=== PATIENT | male | born 1990 | race Caucasian/White ===

== ENCOUNTER 2021-03-29 12:18 | Emergency (ER) | payer MEDICAID ==
[~2021-03-29] VITALS: Ht 167.6 cm; Wt 63.5 kg
[2021-03-29 12:20] VITALS: BP_SYST 148
--- NOTE | 2021-03-29 12:20 | NUR ---
Came in ER per wheelchair accompanied by his mother this 30 male, c/o alcohol intoxication,as per the Patient's mom he is on Detox for alcohol withdrawals. Pt states 'he drink a lot of vodka today". HX of Seizure secodary to ETOH withdraws, DTs. Fully awake, alert, incoherent, crying, emotional upset, respiration even/unlabored, no acute distress noted at this time.
--- NOTE | 2021-03-29 12:25 | NUR ---
# 20 gauge angiocath placed to right ac. Use of asceptic technique. Opsite placed over site. Blood return noted. Blood for lab drawn from site. Flushed with 10 cc of normal saline. No evidence of infiltration noted. Patient tolerated well.
--- NOTE | 2021-03-29 12:33 | NUR ---
Dr Langley evaluating patient at bedside
--- NOTE | 2021-03-29 12:34 | NUR ---
Seen and examined by Dr. Langley
--- NOTE | 2021-03-29 12:37 | NUR ---
Patient transported to radiology via gurney , accompanied by applied research director in stable condition.
[2021-03-29 12:46] LABS: BASOPHILS # (AUTO) 0.1 K/uL (0.0-0.2); BASOPHILS % (AUTO) 0.9 % (0.0-2.0); EOSINOPHILS # (AUTO) 0.2 K/uL (0.0-0.4); EOSINOPHILS % (AUTO) 2.4 % (0.0-4.0); HEMOGLOBIN 16.1 g/dL (14.0-18.0); LYMPHOCYTES # (AUTO) 2.1 K/uL (1.0-5.5); LYMPHOCYTES % (AUTO) 32.1 % (20.5-51.5); MEAN CORPUSCULAR HEMOGLOBIN 34 pg (27-31); MEAN CORPUSCULAR HGB CONC 35 % (32-36); MEAN CORPUSCULAR VOLUME 97 fL (79.0-98.0); MONOCYTES # (AUTO) 0.4 K/uL (0.0-1.0); MONOCYTES % (AUTO) 5.5 % (1.7-9.3); NEUTROPHILS # (AUTO) 3.8 K/uL (1.8-7.7); NEUTROPHILS % (AUTO) 59.1 % (40.0-70.0); PLATELET COUNT (AUTO) 275 K/uL (130-430); RED BLOOD CELL COUNT(AUTO) 4.77 MIL/uL (4.2-6.2); RED CELL DISTRIBUTION WIDTH 12.9 % (9.0-15.0); WHITE BLOOD COUNT (AUTO) 6.4 K/uL (4.8-10.8)
--- NOTE | 2021-03-29 13:01 | NUR ---
Returned from radiology, back to [facility].
[2021-03-29 13:23] LABS: ANION GAP 10 (5-15); CALCIUM 8.6 mg/dL (8.4-11.0); CHLORIDE 100 mmol/L (98-107); CREATININE 0.87 mg/dL (0.55-1.30); GLUCOSE 126 mg/dL (70-99); POTASSIUM 3.6 mmol/L (3.5-5.1); SODIUM SERUM 138 mmol/L (136-145); UREA NITROGEN, BLOOD 14 mg/dL (8-21)
[2021-03-29 13:24] LABS: GFR AFRICAN AMERICAN 133 mL/min (>90)
[2021-03-29 13:36] LABS: ALANINE AMINOTRANSFERASE 57 U/L (12-78); ALBUMIN 4.3 g/dL (3.4-4.8); ASPARTATE AMINOTRANSFERASE 70 U/L (10-37); THYROID STIMULATING HORMONE 1.25 uIu/mL (0.36-3.74); TOTAL BILIRUBIN 0.5 mg/dL (0.0-1.0)
[2021-03-29 13:38] LABS: ACETAMINOPHEN < 1 ug/mL (1-30)
[2021-03-29 13:39] LABS: ALCOHOL, BLOOD 478 mg/dL (<10)
[2021-03-29] MEDS ORDERED: NACL 0.9% 1,000 ML IV ONE ×3 (13:45→15:00)
--- NOTE | 2021-03-29 14:00 | NUR ---
Patient unable to urinate, Dr. Langley made aware and ordered for in and out catheter
--- NOTE | 2021-03-29 14:20 | NUR ---
# 14 FR In and Out catheter with use of sterile technique. Immediate return of 1000 ml urine noted. Urine sample collected and sent to lab. Pt tolerated procedure well.
[2021-03-29 14:32] LABS: BILIRUBIN,URINE NEGATIVE (NEGATIVE); BLOOD, URINE NEGATIVE (NEGATIVE); CLARITY/URINE CLEAR (CLEAR); COLOR,URINE YELLOW (YELLOW); GLUCOSE,URINE NEGATIVE (NEGATIVE); KETONES,URINE NEGATIVE (NEGATIVE); LEUKOCYTE ESTERASE ,URINE NEGATIVE (NEGATIVE); NITRITE, URINE NEGATIVE (NEGATIVE); PH,URINE 6.5 (5.0-8.0); PROTEIN URINE NEGATIVE (NEGATIVE); UROBILINOGEN,URINE 0.2 (0.2-1.0)
[2021-03-29 14:42] LABS: BARBITURATE, URINE NEGATIVE (NEG <=200); BENZODIAZEPINE, URINE NEGATIVE (NEG <=150); CANNABINOID, URINE POSITIVE (NEG <=50); COCAINE, URINE NEGATIVE (NEG <=150); METHAMPHETAMINES SCREEN,URINE NEGATIVE (NEG <=500); OPIATE, URINE NEGATIVE (NEG <=100); PHENCYCLIDINE SCREEN,URINE NEGATIVE (NEG <=25); UR TRICYCLIC ANTIDEPRESSANTS POSITIVE (NEG <=300); URINE AMPHETAMINE NEGATIVE (NEG <=500); URINE METHADONE NEGATIVE (NEG <=200); URINE OXYCODONE SCREEN NEGATIVE (NEG <=100); URINE PROPOXYPHENE SCREEN NEGATIVE (NEG <=300)
--- NOTE | 2021-03-29 14:45 | NUR ---
Re-assesed by Dr. Mccauley
[2021-03-29] MEDS ORDERED: LORazepam 2 MG/ML VIAL IVP ONE (15:00)
--- NOTE | 2021-03-29 16:33 | NUR ---
Still sleeping, respiration even/unlabored, vital signs stable
[2021-03-29] MEDS ORDERED: PRO40 PO (18:08)
[2021-03-29] MEDS ORDERED: SER25 PO (18:08)
[2021-03-29] MEDS ORDERED: FER300L PO (18:08)
[2021-03-29] MEDS ORDERED: ACET325T53 PO (18:08)
[2021-03-29] MEDS ORDERED: ACET-73 PO (18:08)
--- NOTE | 2021-03-29 18:50 | NUR ---
Fully awake and alert, turkey sandwich served.
--- NOTE | 2021-03-29 19:10 | NUR ---
Endorsed to cigarette machine operator LEON Sidhu in stable condition for continuity of care.
--- NOTE | 2021-03-29 19:18 | NUR ---
RECEIVED REPORT FROM ANTONIO QUINTERO
--- NOTE | 2021-03-29 19:50 | NUR ---
PT FOUND IN ROOM AT SINK, URINATING INTO SINK. PT STATES HE WANTS TO GO HOME, THAT HE'S BEEN HERE TOO LONG. PT PLACED BACK ON MONITOR. ATE ALL HIS BOXED LUNCH
[2021-03-29] MEDS ORDERED: LORA-259 PO (19:58)
--- NOTE | 2021-03-29 20:14 | NUR ---
PT'S MOTHER CALLED SAYING SHE IS GOING TO TAKE HIM TO [facility], SHE TOLD ER THAT [facility] IS REQUESTING A NEW ALCOHOL LEVEL BEFORE HE CAN COME. WAITING FOR NEW LAB
[2021-03-29] MEDS ORDERED: LORazepam 1 MG TABLET PO ONE (20:15)
[2021-03-29] MEDS ORDERED: LORazepam 1 MG TABLET ONE (20:20)
--- NOTE | 2021-03-29 21:25 | NUR ---
Patient given written and verbal discharge instructions and verbalizes understanding. ER MD discussed with patient the results and treatment provided. Patient in stable condition. ID arm band removed. IV catheter removed intact and dressing applied, no active bleeding. Rx of ATIVAN given. Patient educated on pain management and to follow up with PMD. Pain Scale 0. Opportunity for questions provided and answered. Medication side effect fact sheet provided.
[2021-03-29 21:33] VITALS: BP_SYST 139
== END 2021-03-29 21:33 | disposition home or self-care (01) ==
LOC: SED 12:18
DX: S00.83XA Contusion of other part of head, initial encounter (principal); F10.129 Alcohol abuse with intoxication, unspecified; Z79.899 Other long term (current) drug therapy; W18.39XA Other fall on same level, initial encounter; Y93.89 Activity, other specified; Y92.89 Other specified places as the place of occurrence of the external cause; Y99.8 Other external cause status
CPT/HCPCS: 36415; 70450; 70486; 76376; 80053; 80307; 81003; 82009; 84443; 85025; 93005; 96361; 96374; 99285; G0480; J2060; J7030; G0481; G0482

== ENCOUNTER 2021-04-25 12:37 | Emergency (ER) | payer MEDICAID, SELFPAY ==
[~2021-04-25] VITALS: Ht 170.2 cm; Wt 65.8 kg
[2021-04-25 12:37] VITALS: BP_SYST 133
[~2021-04-25 12:37] MED LIST: ACET-73 PO; ACET325T53 PO; FER300L PO; LORA-259 PO; PRO40 PO; SER25 PO
--- NOTE | 2021-04-25 12:37 | NUR ---
TRIAGED AND PLACED IN WAITING ROOM WITH MOTHER UNTIL ER BED AVAILABLE, HAVE TO MOVE PTS AROUND. MOTHER AGREES TO WAIT WITH PT. PT IS INTOXICATED BUT ABLE TO MAKE NEEDS KNOWN. PT IS SUICIDAL
--- NOTE | 2021-04-25 12:57 | NUR ---
BROUGHT BACK TO BED #5 AND REPORT GIVEN TO JAMES
--- NOTE | 2021-04-25 12:58 | NUR ---
Song carrington in [facility] - 04/25/21 at [email or web address] Dominguez evaluating patient at bedside
[2021-04-25] MEDS ORDERED: NACL 0.9% 3,000 ML IV ONE (13:15)
[2021-04-25] MEDS ORDERED: LORazepam 2 MG/ML VIAL IVP ONE (13:15)
--- NOTE | 2021-04-25 13:55 | NUR ---
pt presents to er c/o SI, pt drinking heavily x6 weeks per mother approx 30 oz of vodka daily. pt alert oriented calm cooperative. iv inserted to right ac #18guage fluids infusing medicated per order. tolerated well. nad. safety maintained. pt contracts for safety.
[2021-04-25 13:59] LABS: BASOPHILS # (AUTO) 0.1 K/uL (0.0-0.2); BASOPHILS % (AUTO) 0.9 % (0.0-2.0); EOSINOPHILS % (AUTO) 0.5 % (0.0-4.0); HEMATOCRIT 42.6 % (36-54); HEMOGLOBIN 15.3 g/dL (14.0-18.0); LYMPHOCYTES # (AUTO) 1.1 K/uL (1.0-5.5); LYMPHOCYTES % (AUTO) 14.9 % (20.5-51.5); MEAN CORPUSCULAR HEMOGLOBIN 35 pg (27-31); MEAN CORPUSCULAR HGB CONC 36 % (32-36); MEAN CORPUSCULAR VOLUME 96 fL (79.0-98.0); MONOCYTES # (AUTO) 0.3 K/uL (0.0-1.0); MONOCYTES % (AUTO) 4.2 % (1.7-9.3); NEUTROPHILS # (AUTO) 5.9 K/uL (1.8-7.7); NEUTROPHILS % (AUTO) 79.5 % (40.0-70.0); PLATELET COUNT (AUTO) 241 K/uL (130-430); RED BLOOD CELL COUNT(AUTO) 4.43 MIL/uL (4.2-6.2); RED CELL DISTRIBUTION WIDTH 14.5 % (9.0-15.0); WHITE BLOOD COUNT (AUTO) 7.5 K/uL (4.8-10.8)
[2021-04-25 14:05] LABS: ANION GAP 13 (5-15); CALCIUM 8.3 mg/dL (8.4-11.0); CHLORIDE 98 mmol/L (98-107); CREATININE 0.71 mg/dL (0.55-1.30); GLUCOSE 100 mg/dL (70-99); POTASSIUM 3.8 mmol/L (3.5-5.1); SODIUM SERUM 139 mmol/L (136-145); UREA NITROGEN, BLOOD 11 mg/dL (8-21)
[2021-04-25 14:11] LABS: GFR AFRICAN AMERICAN 168 mL/min (>90)
[2021-04-25 14:18] LABS: ALANINE AMINOTRANSFERASE 96 U/L (12-78); ALBUMIN 4.3 g/dL (3.4-4.8); AMYLASE 41 U/L (0-100); ASPARTATE AMINOTRANSFERASE 116 U/L (10-37); LIPASE 254 U/L (73-393); TOTAL BILIRUBIN 0.8 mg/dL (0.0-1.0)
[2021-04-25 14:25] LABS: ALCOHOL, BLOOD 437 mg/dL (<10)
[2021-04-25 15:04] LABS: ACETONE, SERUM NEGATIVE (NEGATIVE)
[2021-04-25] MEDS ORDERED: chlordiazePOXIDE HCL 25 MG CAPSULE PO ONE (17:45)
--- NOTE | 2021-04-25 17:48 | NUR ---
PT C/O NAUSEA AND TREMORS, MEDICATED WITH LIBRIUM PER ORDER.
[2021-04-25] MEDS ORDERED: NACL 0.9% 1,000 ML IV ONE (18:45)
--- NOTE | 2021-04-25 19:15 | NUR ---
Pt A&Ox4,VSS, respirations even and unlabored, cap refill <3.
--- NOTE | 2021-04-25 19:20 | NUR ---
Dr Dominguez evaluating patient at bedside
[2021-04-25] MEDS ORDERED: THORAZINE (chlorproMAZINE) 25 MG TAB PO ONE (19:45)
[2021-04-25 21:58] VITALS: BP_SYST 137
--- NOTE | 2021-04-25 21:58 | NUR ---
Patient given written and verbal discharge instructions and verbalizes understanding. ER MD discussed with patient the results and treatment provided. Patient in stable condition. ID arm band removed. No Rx given. Patient educated on pain management and to follow up with PMD. Pain Scale 0/10 . Opportunity for questions provided and answered. Medication side effect fact sheet provided.
== END 2021-04-25 21:58 | disposition home or self-care (01) ==
LOC: SED 12:37
DX: F10.10 Alcohol abuse, uncomplicated (principal); Z79.899 Other long term (current) drug therapy; Y90.8 Blood alcohol level of 240 mg/100 ml or more
CPT/HCPCS: 36415; 80053; 81002; 82009; 82140; 82150; 83605; 83690; 85025; 96361; 96374; 99285; G0482; J2060; J7030; Q0161

== ENCOUNTER 2021-05-24 15:24 | Emergency (ER) | payer BC, SELFPAY ==
[~2021-05-24] VITALS: Ht 170.2 cm; Wt 68.0 kg
[2021-05-24 15:35] VITALS: BP_SYST 156
--- NOTE | 2021-05-24 15:35 | NUR ---
Pt to remain in the ER lobby until ER bed becomes available.
--- NOTE | 2021-05-24 15:54 | NUR ---
Patient to ER bed 05 to gown for evaluation. Side rails up.
--- NOTE | 2021-05-24 16:10 | NUR ---
Pt in Bed 5 with no s/s of distress. VSS. A&Ox4. Ambulatory with steady gait. Bed in lowest position.
--- NOTE | 2021-05-24 16:42 | NUR ---
ER physician at bedside.
[2021-05-24] MEDS ORDERED: FOLIC ACID 1 MG, THIAMINE HCL 100 MG, MAGNESIUM SULFATE 1 GM, MVI 10 ML in NACL 0.9% 1,... IV ONE (17:00)
[2021-05-24] MEDS ORDERED: THIAMINE HCL 100 MG, MAGNESIUM SULFATE 1 GM in NS 100 ML IV ONE (17:00)
[2021-05-24] MEDS ORDERED: FOLIC ACID 1 MG, MVI 10 ML in NACL 0.9% 1,000 ML IV ONE (17:00)
--- NOTE | 2021-05-24 17:10 | NUR ---
20g IV placed on right AC using aseptic technique, no infiltration noted. Blood draw done. Called pharmacy in regards to bringing a banana bag for pt, they stated they will bring it as soon as possible.
[2021-05-24 17:39] LABS: MEAN CORPUSCULAR HEMOGLOBIN 34 pg (27-31)
[2021-05-24 17:45] LABS: BASOPHILS # (AUTO) 0.1 K/uL (0.0-0.2); BASOPHILS % (AUTO) 0.7 % (0.0-2.0); EOSINOPHILS % (AUTO) 0.3 % (0.0-4.0); HEMATOCRIT 47.9 % (36-54); HEMOGLOBIN 16.7 g/dL (14.0-18.0); LYMPHOCYTES # (AUTO) 2.5 K/uL (1.0-5.5); LYMPHOCYTES % (AUTO) 30.1 % (20.5-51.5); MEAN CORPUSCULAR HGB CONC 35 % (32-36); MEAN CORPUSCULAR VOLUME 98 fL (79.0-98.0); MONOCYTES # (AUTO) 0.5 K/uL (0.0-1.0); NEUTROPHILS # (AUTO) 5.1 K/uL (1.8-7.7); NEUTROPHILS % (AUTO) 62.9 % (40.0-70.0); PLATELET COUNT (AUTO) 405 K/uL (130-430); RED BLOOD CELL COUNT(AUTO) 4.88 MIL/uL (4.2-6.2); WHITE BLOOD COUNT (AUTO) 8.2 K/uL (4.8-10.8)
[2021-05-24 17:54] LABS: CALCIUM 9.3 mg/dL (8.4-11.0); CREATININE 0.88 mg/dL (0.55-1.30); POTASSIUM 4.3 mmol/L (3.5-5.1)
[2021-05-24 18:00] LABS: TOTAL BILIRUBIN 0.4 mg/dL (0.0-1.0)
[2021-05-24 18:02] LABS: PROTHROMBIN TIME 8.9 SECS (9.5-12.5)
[2021-05-24 18:03] LABS: BARBITURATE, URINE NEGATIVE (NEG <=200); BENZODIAZEPINE, URINE NEGATIVE (NEG <=150); COCAINE, URINE NEGATIVE (NEG <=150); METHAMPHETAMINES SCREEN,URINE NEGATIVE (NEG <=500); OPIATE, URINE NEGATIVE (NEG <=100); PHENCYCLIDINE SCREEN,URINE NEGATIVE (NEG <=25); UR TRICYCLIC ANTIDEPRESSANTS NEGATIVE (NEG <=300); URINE AMPHETAMINE NEGATIVE (NEG <=500); URINE METHADONE NEGATIVE (NEG <=200); URINE OXYCODONE SCREEN NEGATIVE (NEG <=100); URINE PROPOXYPHENE SCREEN NEGATIVE (NEG <=300)
[2021-05-24 18:03] LABS: BILIRUBIN,URINE NEGATIVE (NEGATIVE); BLOOD, URINE 1+ (NEGATIVE); COLOR,URINE YELLOW (YELLOW); GLUCOSE,URINE NEGATIVE (NEGATIVE); KETONES,URINE 2+ (NEGATIVE); LEUKOCYTE ESTERASE ,URINE NEGATIVE (NEGATIVE); NITRITE, URINE NEGATIVE (NEGATIVE); PH,URINE 5.5 (5.0-8.0); PROTEIN URINE 3+ (NEGATIVE); UROBILINOGEN,URINE 0.2 (0.2-1.0)
[2021-05-24 18:04] LABS: CANNABINOID, URINE POSITIVE (NEG <=50)
[2021-05-24 18:13] LABS: BACTERIA,URINE FEW /HPF (None Seen); WBC,URINE 0-3 /HPF (0-3)
[2021-05-24 18:15] LABS: INR 0.8 (0.80-1.20)
--- NOTE | 2021-05-24 19:21 | NUR ---
ASSUMED CARE OF PATIENT AT THIS TIME.
--- NOTE | 2021-05-24 19:37 | NUR ---
PATIENT CLEARED FOR DISHCARGE AT THIS TIME. ADVISED TO FOLLOW UP WITH PCP AND RETURN IF CONDITION WORSENS. NO OTHER COMPLAINTS OR CONCERNS FOLLOWING DISCHARGE TEACHING. IV REMOVED AND PATIENT RELEASED TO MOTHER.
[2021-05-24 19:38] VITALS: BP_SYST 137
[2021-05-24 19:59] LABS: CLARITY/URINE HAZY (CLEAR)
[2021-05-24 20:00] LABS: MUCUS,URINE None Seen /LPF (None Seen)
== END 2021-05-24 19:38 | disposition home or self-care (01) ==
LOC: SED 15:24
DX: F10.129 Alcohol abuse with intoxication, unspecified (principal); Y90.8 Blood alcohol level of 240 mg/100 ml or more; Z79.899 Other long term (current) drug therapy
CPT/HCPCS: 36415; 80053; 80307; 81000; 82140; 83690; 85025; 85610; 96365; 96366; 96368; 99284; G0482; J3411; J3475; J3490; J7030

== ENCOUNTER 2021-11-21 07:13 | Emergency (ER) | payer BC, OTHER ==
[~2021-11-21] VITALS: Ht 170.2 cm; Wt 68.0 kg
[2021-11-21 07:15] VITALS: BP_SYST 130
--- NOTE | 2021-11-21 07:15 | NUR ---
BROUGHT IN BY [facility] AND PLACED IN BED #8, TRIAGED. REPORT GIVEN TO DORIS
--- NOTE | 2021-11-21 07:23 | NUR ---
DR TAO IN ROOM FOR EXAM
--- NOTE | 2021-11-21 07:29 | NUR ---
PT LAYING IN BED, IN NAD. RESP EVEN AND UNLABORED, ON A @98% REPORTS PAIN 7/10 TO LEFT SIDED RIB AREA AFTER FALLING OFF BED 2 WEEKS AGO SECONDARY TO ETOH ABUSE. REPORTS LAST DRINK TWO DAYS AGO AND THATHE'S HERE BECAUSE HE HAS HICCUPS AND IT HURTS MORE. SAFETY PRECAUTIONS IN PLACE.
[2021-11-21] MEDS ORDERED: THORAZINE (chlorproMAZINE) 25 MG TAB PO ONE (07:30)
[2021-11-21] MEDS ORDERED: KETOROLAC TROMETHAMINE 30 MG VIAL IM ONE (07:30)
--- NOTE | 2021-11-21 08:11 | NUR ---
PT HAD A VOMITTING EPISODE, UNDIGESTED FOOD. STATES HE DOES NOT FEEL NAUSTIOUS,BUT ITS FROM HIS HICCUPS. DR TAO INFORMED.
[2021-11-21] MEDS ORDERED: IBUP-1969 PO (08:39)
--- NOTE | 2021-11-21 08:58 | NUR ---
PT DISCHARGED, PAPERWORK GIVEN. REQUETS TO CALL HIS FAMILY FOR [employer] REMOVAL, I CALLED AND TALKED TO HIS MOM WHO SAID, SHE WILL CALL HIS GF TO [employer] REMOVAL,,
[2021-11-21 09:25] VITALS: BP_SYST 127
== END 2021-11-21 08:58 | disposition home or self-care (01) ==
LOC: SED 07:13
DX: R07.89 Other chest pain (principal); R07.81 Pleurodynia; Z79.899 Other long term (current) drug therapy
CPT/HCPCS: 99283; 71100; 96372; Q0161; J1885

== ENCOUNTER 2021-11-25 11:24 | Inpatient (IN) | payer BC, OTHER ==
[~2021-11-25] VITALS: Ht 170.2 cm; Wt 68.5 kg
[~2021-11-25 11:24] MED LIST changes: +IBUP-1969 PO
[2021-11-25 11:45] VITALS: BP_SYST 138
[2021-11-25] MEDS ORDERED: HALOPERIDOL LACTATE 5 MG/ML VIAL IVP ONE (12:15)
[2021-11-25] MEDS ORDERED: LORazepam 2 MG/ML VIAL IVP ONE (12:15)
[2021-11-25] MEDS ORDERED: DIPHENHYDRAMINE INJ 50 MG/ML VIAL IVP ONE (12:15)
[2021-11-25] MEDS ORDERED: NACL 0.9% 1,000 ML IV ONE (12:15)
[2021-11-25 12:59] LABS: BASOPHILS % (AUTO) 0.2 % (0.0-2.0); HEMATOCRIT 47.7 % (36-54); HEMOGLOBIN 17.1 g/dL (14.0-18.0); LYMPHOCYTES % (AUTO) 6.3 % (20.5-51.5); MEAN CORPUSCULAR HEMOGLOBIN 35 pg (27-31); MEAN CORPUSCULAR HGB CONC 36 % (32-36); MEAN CORPUSCULAR VOLUME 98 fL (79.0-98.0); MONOCYTES # (AUTO) 1.5 K/uL (0.0-1.0); MONOCYTES % (AUTO) 9.6 % (1.7-9.3); NEUTROPHILS # (AUTO) 12.7 K/uL (1.8-7.7); NEUTROPHILS % (AUTO) 83.9 % (40.0-70.0); PLATELET COUNT (AUTO) 81 K/uL (130-430); RED BLOOD CELL COUNT(AUTO) 4.89 MIL/uL (4.2-6.2); RED CELL DISTRIBUTION WIDTH 12.5 % (9.0-15.0); WHITE BLOOD COUNT (AUTO) 15.1 K/uL (4.8-10.8)
[2021-11-25 13:28] LABS: CREATININE 1.63 mg/dL (0.55-1.30)
[2021-11-25 13:51] LABS: ALBUMIN 3.1 g/dL (3.4-4.8)
[2021-11-25] MEDS ORDERED: D5/0.45 NS 1,000 ML IV ONE (14:15)
[2021-11-25] MEDS ORDERED: DIPHENHYDRAMINE INJ 50 MG/ML VIAL ONE (15:16)
[2021-11-25] MEDS ORDERED: LORazepam 2 MG/ML VIAL ONE (15:16)
[2021-11-25] MEDS ORDERED: HALOPERIDOL LACTATE 5 MG/ML VIAL ONE (15:17)
[2021-11-25] MEDS ORDERED: ONDANSETRON HCL 4 MG/2 ML VIAL IVP PRN (16:15)
[2021-11-25 17:51] LABS: CALCIUM 7.6 mg/dL (8.4-11.0); CREATININE 1.16 mg/dL (0.55-1.30); POTASSIUM 3.9 mmol/L (3.5-5.1)
[2021-11-25 21:27] VITALS: BP_SYST 132
[2021-11-25] MEDS ORDERED: LORazepam 1 MG TABLET ONE (22:37)
[2021-11-25] MEDS: LORazepam 1 MG TABLET PO PRN (22:38)
[2021-11-26] MEDS ORDERED: LORazepam 2 MG/ML VIAL IVP PRN (02:00)
[2021-11-26] MEDS ORDERED: FOLIC ACID 1 MG, THIAMINE HCL 100 MG, MAGNESIUM SULFATE 1 GM, MVI 10 ML in NACL 0.9% 1,... IV SCH ×2 (02:00→16:30)
[2021-11-26] MEDS ORDERED: LORazepam 2 MG/ML VIAL ONE (02:16)
[2021-11-26] MEDS: chlordiazePOXIDE HCL 25 MG CAPSULE PO SCH ×5 (02:21→20:27)
[2021-11-26 02:28] VITALS: BP_SYST 149
[2021-11-26] MEDS: HALOPERIDOL LACTATE 5 MG/ML VIAL IM PRN ×2 (02:43→10:29)
[2021-11-26] MEDS ORDERED: FOLIC ACID 5 MG/ML VIAL IV ONE (02:54)
[2021-11-26] MEDS ORDERED: THIAMINE HCL 100 MG/ML VIAL ONE (02:55)
[2021-11-26] MEDS ORDERED: MVI 10 ML VIAL IV ONE (02:56)
[2021-11-26] MEDS ORDERED: MAGNESIUM SULFATE 1 GM/2 ML VIAL ONE (02:56)
[2021-11-26 08:00] VITALS: BP_SYST 133
[2021-11-26] MEDS: LORazepam 1 MG TABLET PO PRN ×3 (08:23→19:33)
[2021-11-26] MEDS ORDERED: ACETAMINOPHEN 325 MG TABLET PO PRN (11:15)
[2021-11-26] MEDS ORDERED: cefTRIAXone 1 GM in D5W 50 ML IV SCH (11:30)
[2021-11-26 12:00] VITALS: BP_SYST 125
[2021-11-26] MEDS ORDERED: THIAMINE HCL 100 MG TABLET PO ONE (12:00)
[2021-11-26] MEDS ORDERED: FOLIC ACID 1 MG TABLET PO ONE (12:00)
[2021-11-26] MEDS ORDERED: MULTIVITAMINS TAB 1 TABLET PO ONE (12:00)
[2021-11-26] MEDS ORDERED: PROMETHAZINE HCL 25 MG TABLET PO PRN (13:00)
[2021-11-26] MEDS: cefTRIAXone 1 GM IVPB PREMIX 50 ML IV SCH (15:23)
[2021-11-26 15:43] LABS: BASOPHILS % (AUTO) 0.2 % (0.0-2.0); EOSINOPHILS % (AUTO) 0.2 % (0.0-4.0); HEMATOCRIT 39.5 % (36-54); HEMOGLOBIN 14.2 g/dL (14.0-18.0); LYMPHOCYTES # (AUTO) 0.8 K/uL (1.0-5.5); LYMPHOCYTES % (AUTO) 10.1 % (20.5-51.5); MEAN CORPUSCULAR HEMOGLOBIN 35 pg (27-31); MEAN CORPUSCULAR HGB CONC 36 % (32-36); MEAN CORPUSCULAR VOLUME 97 fL (79.0-98.0); MONOCYTES # (AUTO) 0.9 K/uL (0.0-1.0); MONOCYTES % (AUTO) 11.5 % (1.7-9.3); NEUTROPHILS # (AUTO) 6.4 K/uL (1.8-7.7); RED BLOOD CELL COUNT(AUTO) 4.05 MIL/uL (4.2-6.2); RED CELL DISTRIBUTION WIDTH 12.3 % (9.0-15.0); WHITE BLOOD COUNT (AUTO) 8.2 K/uL (4.8-10.8)
[2021-11-26 15:58] LABS: CALCIUM 8.1 mg/dL (8.4-11.0); CREATININE 0.76 mg/dL (0.55-1.30)
[2021-11-26 16:00] VITALS: BP_SYST 134
[2021-11-26 16:03] LABS: POTASSIUM 2.4 mmol/L (3.5-5.1)
[2021-11-26 16:06] LABS: PLATELET COUNT (AUTO) 52 K/uL (130-430)
[2021-11-26] MEDS ORDERED: POTASSIUM CHLORIDE 40 MEQ in NS 250 ML IV ONE (18:00)
[2021-11-26] MEDS: FOLIC ACID 1 MG, MVI 10 ML in NACL 0.9% 1,000 ML IV SCH (19:40)
[2021-11-26 20:00] VITALS: BP_SYST 138
[2021-11-26] MEDS ORDERED: THIAMINE HCL 100 MG, MAGNESIUM SULFATE 1 GM in NS 100 ML IV SCH (21:00)
[2021-11-26] MEDS ORDERED: FOLIC ACID 1 MG, MVI 10 ML in NACL 0.9% 1,000 ML IV SCH (21:00)
[2021-11-26] MEDS: THIAMINE HCL 100 MG, MAGNESIUM SULFATE 1 GM in NS 100 ML IV SCH (21:55)
[2021-11-27] VITALS: BP_SYST 130
[2021-11-27] MEDS: LORazepam 1 MG TABLET PO PRN ×3 (02:56→11:22)
[2021-11-27 04:00] VITALS: BP_SYST 140
[2021-11-27 06:48] LABS: BASOPHILS # (AUTO) 0.1 K/uL (0.0-0.2); BASOPHILS % (AUTO) 1.3 % (0.0-2.0); EOSINOPHILS # (AUTO) 0.1 K/uL (0.0-0.4); EOSINOPHILS % (AUTO) 1.1 % (0.0-4.0); HEMATOCRIT 34.1 % (36-54); HEMOGLOBIN 12.6 g/dL (14.0-18.0); LYMPHOCYTES # (AUTO) 0.8 K/uL (1.0-5.5); LYMPHOCYTES % (AUTO) 13.5 % (20.5-51.5); MEAN CORPUSCULAR HEMOGLOBIN 36 pg (27-31); MEAN CORPUSCULAR HGB CONC 37 % (32-36); MEAN CORPUSCULAR VOLUME 98 fL (79.0-98.0); MONOCYTES # (AUTO) 0.8 K/uL (0.0-1.0); MONOCYTES % (AUTO) 12.8 % (1.7-9.3); NEUTROPHILS # (AUTO) 4.4 K/uL (1.8-7.7); NEUTROPHILS % (AUTO) 71.3 % (40.0-70.0); PLATELET COUNT (AUTO) 55 K/uL (130-430); RED CELL DISTRIBUTION WIDTH 12.1 % (9.0-15.0); WHITE BLOOD COUNT (AUTO) 6.2 K/uL (4.8-10.8)
[2021-11-27 08:00] VITALS: BP_SYST 122
[2021-11-27] MEDS: chlordiazePOXIDE HCL 25 MG CAPSULE PO SCH ×4 (08:08→20:33)
[2021-11-27] MEDS: MULTIVITAMINS TAB 1 TABLET PO SCH (08:14)
[2021-11-27] MEDS ORDERED: FOLIC ACID 1 MG TABLET PO SCH (09:00)
[2021-11-27] MEDS ORDERED: THIAMINE HCL 100 MG TABLET PO SCH (09:00)
[2021-11-27 09:14] LABS: ALBUMIN 2.6 g/dL (3.4-4.8); CALCIUM 7.7 mg/dL (8.4-11.0); CREATININE 0.66 mg/dL (0.55-1.30); TOTAL BILIRUBIN 2.5 mg/dL (0.0-1.0)
[2021-11-27 09:38] LABS: ERYTHROCYTE SEDIMENTATION RATE 6 MM/HR (0-15)
[2021-11-27 10:56] LABS: POTASSIUM 2.3 mmol/L (3.5-5.1)
[2021-11-27 12:01] VITALS: BP_SYST 122
[2021-11-27 12:04] LABS: C-REACTIVE PROTEIN QUANT 11.3 mg/dL (0-0.5)
[2021-11-27] MEDS ORDERED: K PHOS 30 MM in NS 250 ML IV ONE (13:00)
[2021-11-27] MEDS ORDERED: POTASSIUM CHLORIDE 40 MEQ in NS 250 ML IV ONE (13:00)
[2021-11-27] MEDS: cefTRIAXone 1 GM IVPB PREMIX 50 ML IV SCH (13:45)
[2021-11-27] MEDS ORDERED: PHENYTOIN 100 MG CAPSULE PO ONE (15:15)
[2021-11-27] MEDS ORDERED: LORazepam 2 MG/ML VIAL IM ONE (15:45)
[2021-11-27] MEDS ORDERED: DIPHENHYDRAMINE INJ 50 MG/ML VIAL IM ONE (15:45)
[2021-11-27 16:07] VITALS: BP_SYST 124
[2021-11-27] MEDS ORDERED: LORazepam 2 MG/ML VIAL IM PRN (18:45)
[2021-11-27 20:00] VITALS: BP_SYST 142
[2021-11-27] MEDS: THIAMINE HCL 100 MG, MAGNESIUM SULFATE 1 GM in NS 100 ML IV SCH (20:00)
[2021-11-27] MEDS: FOLIC ACID 1 MG, MVI 10 ML in NACL 0.9% 1,000 ML IV SCH (20:30)
[2021-11-27] MEDS: ACETAMINOPHEN 325 MG TABLET PO PRN (20:33)
[2021-11-27 21:28] LABS: BENZODIAZEPINE, URINE POSITIVE (NEG <=150); CANNABINOID, URINE POSITIVE (NEG <=50)
[2021-11-27 21:29] LABS: BARBITURATE, URINE NEGATIVE (NEG <=200); COCAINE, URINE NEGATIVE (NEG <=150); METHAMPHETAMINES SCREEN,URINE NEGATIVE (NEG <=500); OPIATE, URINE NEGATIVE (NEG <=100); PHENCYCLIDINE SCREEN,URINE NEGATIVE (NEG <=25); UR TRICYCLIC ANTIDEPRESSANTS NEGATIVE (NEG <=300); URINE AMPHETAMINE NEGATIVE (NEG <=500); URINE METHADONE NEGATIVE (NEG <=200); URINE OXYCODONE SCREEN NEGATIVE (NEG <=100); URINE PROPOXYPHENE SCREEN NEGATIVE (NEG <=300)
[2021-11-28] VITALS: BP_SYST 149
[2021-11-28] MEDS: DIPHENHYDRAMINE INJ 50 MG/ML VIAL IM PRN ×2 (00:09→20:47)
[2021-11-28] MEDS: LORazepam 2 MG/ML VIAL IVP PRN ×4 (00:10→20:49)
[2021-11-28 04:00] VITALS: BP_SYST 140
[2021-11-28 07:30] LABS: ALBUMIN 2.4 g/dL (3.4-4.8); C-REACTIVE PROTEIN QUANT 13.2 mg/dL (0-0.5); CALCIUM 7.7 mg/dL (8.4-11.0); CREATININE 0.51 mg/dL (0.55-1.30); PHOSPHORUS 2.8 mg/dL (2.7-4.5); TOTAL BILIRUBIN 2.2 mg/dL (0.0-1.0)
[2021-11-28 08:26] LABS: POTASSIUM 2.2 mmol/L (3.5-5.1)
[2021-11-28] MEDS: MULTIVITAMINS TAB 1 TABLET PO SCH (09:00)
[2021-11-28 10:54] LABS: BASOPHILS % (AUTO) 0.5 % (0.0-2.0); EOSINOPHILS # (AUTO) 0.1 K/uL (0.0-0.4); EOSINOPHILS % (AUTO) 2.1 % (0.0-4.0); HEMATOCRIT 33.8 % (36-54); LYMPHOCYTES % (AUTO) 14.5 % (20.5-51.5); MEAN CORPUSCULAR HEMOGLOBIN 35 pg (27-31); MEAN CORPUSCULAR HGB CONC 36 % (32-36); MEAN CORPUSCULAR VOLUME 100 fL (79.0-98.0); MONOCYTES # (AUTO) 1.2 K/uL (0.0-1.0); MONOCYTES % (AUTO) 17.7 % (1.7-9.3); NEUTROPHILS # (AUTO) 4.3 K/uL (1.8-7.7); NEUTROPHILS % (AUTO) 65.2 % (40.0-70.0); PLATELET COUNT (AUTO) 82 K/uL (130-430); RED BLOOD CELL COUNT(AUTO) 3.39 MIL/uL (4.2-6.2); RED CELL DISTRIBUTION WIDTH 12.3 % (9.0-15.0); WHITE BLOOD COUNT (AUTO) 6.7 K/uL (4.8-10.8)
[2021-11-28] MEDS ORDERED: POTASSIUM CHLORIDE 40 MEQ in NS 250 ML IV ONE (11:15)
[2021-11-28 12:10] LABS: ERYTHROCYTE SEDIMENTATION RATE 15 MM/HR (0-15)
[2021-11-28 12:26] VITALS: BP_SYST 136
[2021-11-28] MEDS: cefTRIAXone 1 GM IVPB PREMIX 50 ML IV SCH (14:15)
[2021-11-28 16:17] VITALS: BP_SYST 135
[2021-11-28 20:00] VITALS: BP_SYST 144
[2021-11-28] MEDS: chlordiazePOXIDE HCL 25 MG CAPSULE PO SCH (20:45)
[2021-11-28] MEDS: THIAMINE HCL 100 MG, MAGNESIUM SULFATE 1 GM in NS 100 ML IV SCH (20:46)
[2021-11-28] MEDS: FOLIC ACID 1 MG, MVI 10 ML in NACL 0.9% 1,000 ML IV SCH (20:46)
[2021-11-29 01:12] VITALS: BP_SYST 137
[2021-11-29 07:14] LABS: BASOPHILS % (AUTO) 0.3 % (0.0-2.0); EOSINOPHILS # (AUTO) 0.2 K/uL (0.0-0.4); HEMATOCRIT 32.7 % (36-54); HEMOGLOBIN 12.1 g/dL (14.0-18.0); LYMPHOCYTES # (AUTO) 1.1 K/uL (1.0-5.5); LYMPHOCYTES % (AUTO) 13.5 % (20.5-51.5); MEAN CORPUSCULAR HEMOGLOBIN 36 pg (27-31); MEAN CORPUSCULAR HGB CONC 37 % (32-36); MEAN CORPUSCULAR VOLUME 97 fL (79.0-98.0); MONOCYTES % (AUTO) 23.2 % (1.7-9.3); NEUTROPHILS # (AUTO) 5.1 K/uL (1.8-7.7); PLATELET COUNT (AUTO) 120 K/uL (130-430); RED BLOOD CELL COUNT(AUTO) 3.37 MIL/uL (4.2-6.2); RED CELL DISTRIBUTION WIDTH 12.3 % (9.0-15.0); WHITE BLOOD COUNT (AUTO) 8.4 K/uL (4.8-10.8)
[2021-11-29 08:00] VITALS: BP_SYST 126
[2021-11-29] MEDS: chlordiazePOXIDE HCL 25 MG CAPSULE PO SCH ×4 (08:30→20:53)
[2021-11-29 08:32] LABS: ALBUMIN 2.4 g/dL (3.4-4.8); C-REACTIVE PROTEIN QUANT 11.3 mg/dL (0-0.5); CREATININE 0.51 mg/dL (0.55-1.30); PHOSPHORUS 2.3 mg/dL (2.7-4.5); TOTAL BILIRUBIN 1.2 mg/dL (0.0-1.0)
[2021-11-29 08:51] LABS: ERYTHROCYTE SEDIMENTATION RATE 21 MM/HR (0-15)
[2021-11-29 09:00] LABS: POTASSIUM 2.5 mmol/L (3.5-5.1)
[2021-11-29 10:24] VITALS: BP_SYST 132
[2021-11-29] MEDS: LORazepam 2 MG/ML VIAL IVP PRN ×2 (10:32→18:11)
[2021-11-29] MEDS ORDERED: POTASSIUM CHLORIDE 60 MEQ in NS 500 ML IV ONE (11:00)
[2021-11-29 12:00] VITALS: BP_SYST 134
[2021-11-29] MEDS: cefTRIAXone 1 GM IVPB PREMIX 50 ML IV SCH (13:08)
[2021-11-29 16:00] VITALS: BP_SYST 128
[2021-11-29] MEDS ORDERED: K PHOS 15 MM in NS 250 ML IV ONE (17:00)
[2021-11-29 20:00] VITALS: BP_SYST 138
[2021-11-29] MEDS: THIAMINE HCL 100 MG, MAGNESIUM SULFATE 1 GM in NS 100 ML IV SCH (20:54)
[2021-11-29] MEDS: FOLIC ACID 1 MG, MVI 10 ML in NACL 0.9% 1,000 ML IV SCH (20:54)
[2021-11-30] VITALS: BP_SYST 124
[2021-11-30] MEDS: LORazepam 2 MG/ML VIAL IVP PRN (01:00)
[2021-11-30 03:06] LABS: HEPATITIS A AB, IgM Negative (Negative); HEPATITIS B CORE AB, IgM Negative (Negative); HEPATITIS B SURFACE AG Negative (Negative)
[2021-11-30 06:54] LABS: BASOPHILS % (AUTO) 0.6 % (0.0-2.0); EOSINOPHILS # (AUTO) 0.1 K/uL (0.0-0.4); EOSINOPHILS % (AUTO) 1.9 % (0.0-4.0); HEMATOCRIT 31.7 % (36-54); HEMOGLOBIN 11.7 g/dL (14.0-18.0); LYMPHOCYTES # (AUTO) 1.2 K/uL (1.0-5.5); LYMPHOCYTES % (AUTO) 16.5 % (20.5-51.5); MEAN CORPUSCULAR HEMOGLOBIN 37 pg (27-31); MEAN CORPUSCULAR HGB CONC 37 % (32-36); MEAN CORPUSCULAR VOLUME 99 fL (79.0-98.0); MONOCYTES % (AUTO) 27.7 % (1.7-9.3); NEUTROPHILS # (AUTO) 3.8 K/uL (1.8-7.7); NEUTROPHILS % (AUTO) 53.3 % (40.0-70.0); PLATELET COUNT (AUTO) 229 K/uL (130-430); RED BLOOD CELL COUNT(AUTO) 3.21 MIL/uL (4.2-6.2); RED CELL DISTRIBUTION WIDTH 12.6 % (9.0-15.0); WHITE BLOOD COUNT (AUTO) 7.1 K/uL (4.8-10.8)
[2021-11-30 07:09] LABS: PROTHROMBIN TIME 10.1 SECS (9.5-12.5)
[2021-11-30 07:19] LABS: ALBUMIN 2.1 g/dL (3.4-4.8); CALCIUM 7.8 mg/dL (8.4-11.0); CREATININE 0.47 mg/dL (0.55-1.30); PHOSPHORUS 3.3 mg/dL (2.7-4.5); TOTAL BILIRUBIN 0.7 mg/dL (0.0-1.0)
[2021-11-30 07:42] VITALS: BP_SYST 132
[2021-11-30 08:05] LABS: POTASSIUM 2.8 mmol/L (3.5-5.1)
[2021-11-30] MEDS ORDERED: POTASSIUM CHLORIDE 40 MEQ in D5W 250 ML IV ONE (09:30)
[2021-11-30] MEDS: chlordiazePOXIDE HCL 25 MG CAPSULE PO SCH ×4 (09:32→21:16)
[2021-11-30] MEDS: LORazepam 1 MG TABLET PO PRN ×3 (09:58→21:16)
[2021-11-30] MEDS: ACETAMINOPHEN 325 MG TABLET PO PRN (09:59)
[2021-11-30] MEDS: POTASSIUM CHLORIDE 20 mEq in 100 mL (PREMIX) 100 ML x 2 doses IV SCH ×2 (11:56→13:24)
[2021-11-30 12:00] VITALS: BP_SYST 137
[2021-11-30] MEDS: cefTRIAXone 1 GM IVPB PREMIX 50 ML IV SCH (13:21)
[2021-11-30] MEDS ORDERED: DIATR MEGLU/DIATRIZ SOD 30 ML SOLUTION PO ONE (15:55)
[2021-11-30 16:00] VITALS: BP_SYST 130
[2021-11-30 20:00] VITALS: BP_SYST 124
[2021-11-30] MEDS: POTASSIUM CHLORIDE 20 MEQ TAB.PRT.SR PO SCH (21:16)
[2021-11-30] MEDS: THIAMINE HCL 100 MG, MAGNESIUM SULFATE 1 GM in NS 100 ML IV SCH (21:22)
[2021-11-30] MEDS: FOLIC ACID 1 MG, MVI 10 ML in NACL 0.9% 1,000 ML IV SCH (21:26)
[2021-12-01] VITALS: BP_SYST 130
[2021-12-01] MEDS: LORazepam 2 MG/ML VIAL IVP PRN (01:31)
[2021-12-01 06:44] LABS: BASOPHILS % (AUTO) 0.5 % (0.0-2.0); EOSINOPHILS # (AUTO) 0.1 K/uL (0.0-0.4); EOSINOPHILS % (AUTO) 1.3 % (0.0-4.0); HEMATOCRIT 32.2 % (36-54); HEMOGLOBIN 11.8 g/dL (14.0-18.0); LYMPHOCYTES # (AUTO) 1.5 K/uL (1.0-5.5); LYMPHOCYTES % (AUTO) 18.9 % (20.5-51.5); MEAN CORPUSCULAR HEMOGLOBIN 36 pg (27-31); MEAN CORPUSCULAR HGB CONC 37 % (32-36); MEAN CORPUSCULAR VOLUME 98 fL (79.0-98.0); MONOCYTES # (AUTO) 2.4 K/uL (0.0-1.0); MONOCYTES % (AUTO) 30.2 % (1.7-9.3); NEUTROPHILS # (AUTO) 3.9 K/uL (1.8-7.7); NEUTROPHILS % (AUTO) 49.1 % (40.0-70.0); PLATELET COUNT (AUTO) 364 K/uL (130-430); RED BLOOD CELL COUNT(AUTO) 3.29 MIL/uL (4.2-6.2); RED CELL DISTRIBUTION WIDTH 12.3 % (9.0-15.0)
[2021-12-01 07:16] LABS: ALBUMIN 2.3 g/dL (3.4-4.8); CALCIUM 8.5 mg/dL (8.4-11.0); CREATININE 0.51 mg/dL (0.55-1.30); POTASSIUM 4.1 mmol/L (3.5-5.1); TOTAL BILIRUBIN 0.6 mg/dL (0.0-1.0)
[2021-12-01 07:26] VITALS: BP_SYST 129
[2021-12-01] MEDS: POTASSIUM CHLORIDE 20 MEQ TAB.PRT.SR PO SCH ×2 (08:41→20:41)
[2021-12-01] MEDS: chlordiazePOXIDE HCL 25 MG CAPSULE PO SCH ×4 (08:41→20:39)
[2021-12-01] MEDS: LORazepam 1 MG TABLET PO PRN ×2 (08:42→13:49)
[2021-12-01] MEDS: ACETAMINOPHEN 325 MG TABLET PO PRN ×2 (08:42→14:29)
[2021-12-01 12:00] VITALS: BP_SYST 113
[2021-12-01 16:06] VITALS: BP_SYST 120
[2021-12-01 20:00] VITALS: BP_SYST 115
[2021-12-01] MEDS: QUEtiapine FUMARATE 100 MG TABLET PO SCH (20:39)
[2021-12-02 00:58] VITALS: BP_SYST 123
[2021-12-02] MEDS: LORazepam 2 MG/ML VIAL IVP PRN (02:24)
[2021-12-02 06:51] LABS: BASOPHILS % (AUTO) 0.4 % (0.0-2.0); EOSINOPHILS # (AUTO) 0.1 K/uL (0.0-0.4); EOSINOPHILS % (AUTO) 1.3 % (0.0-4.0); LYMPHOCYTES # (AUTO) 1.5 K/uL (1.0-5.5); LYMPHOCYTES % (AUTO) 19.5 % (20.5-51.5); MEAN CORPUSCULAR HEMOGLOBIN 36 pg (27-31); MEAN CORPUSCULAR HGB CONC 36 % (32-36); MEAN CORPUSCULAR VOLUME 98 fL (79.0-98.0); MONOCYTES # (AUTO) 1.6 K/uL (0.0-1.0); MONOCYTES % (AUTO) 20.2 % (1.7-9.3); NEUTROPHILS # (AUTO) 4.5 K/uL (1.8-7.7); NEUTROPHILS % (AUTO) 58.6 % (40.0-70.0); PLATELET COUNT (AUTO) 448 K/uL (130-430); RED BLOOD CELL COUNT(AUTO) 3.37 MIL/uL (4.2-6.2); RED CELL DISTRIBUTION WIDTH 12.5 % (9.0-15.0); WHITE BLOOD COUNT (AUTO) 7.7 K/uL (4.8-10.8)
[2021-12-02 08:00] VITALS: BP_SYST 141
[2021-12-02 08:00] LABS: ALBUMIN 2.2 g/dL (3.4-4.8); CREATININE 0.44 mg/dL (0.55-1.30); POTASSIUM 3.2 mmol/L (3.5-5.1); TOTAL BILIRUBIN 0.5 mg/dL (0.0-1.0)
[2021-12-02] MEDS: chlordiazePOXIDE HCL 25 MG CAPSULE PO SCH ×4 (08:32→20:49)
[2021-12-02] MEDS: POTASSIUM CHLORIDE 20 MEQ TAB.PRT.SR PO SCH ×2 (08:32→20:49)
[2021-12-02 09:09] LABS: CALCIUM 8.6 mg/dL (8.4-11.0)
[2021-12-02] MEDS ORDERED: POTASSIUM CHLORIDE 20 MEQ TAB.PRT.SR PO ONE (09:30)
[2021-12-02 12:00] VITALS: BP_SYST 121
[2021-12-02] MEDS: LORazepam 1 MG TABLET PO PRN (14:09)
[2021-12-02 16:00] VITALS: BP_SYST 115
[2021-12-02] MEDS ORDERED: NICOTINE 21 MG/24 HR PATCH.TD24 TD ONE (16:15)
[2021-12-02 19:00] VITALS: BP_SYST 109
[2021-12-02 20:00] VITALS: BP_SYST 109
[2021-12-02] MEDS: QUEtiapine FUMARATE 100 MG TABLET PO SCH (20:49)
[2021-12-03] VITALS: BP_SYST 116
[2021-12-03] MEDS: LORazepam 1 MG TABLET PO PRN ×3 (02:10→20:25)
[2021-12-03 04:00] VITALS: BP_SYST 140
[2021-12-03 04:30] VITALS: BP_SYST 138
[2021-12-03 07:30] LABS: BASOPHILS # (AUTO) 0.1 K/uL (0.0-0.2); BASOPHILS % (AUTO) 0.7 % (0.0-2.0); EOSINOPHILS # (AUTO) 0.1 K/uL (0.0-0.4); EOSINOPHILS % (AUTO) 0.7 % (0.0-4.0); HEMATOCRIT 34.2 % (36-54); HEMOGLOBIN 12.3 g/dL (14.0-18.0); LYMPHOCYTES # (AUTO) 1.4 K/uL (1.0-5.5); LYMPHOCYTES % (AUTO) 14.7 % (20.5-51.5); MEAN CORPUSCULAR HEMOGLOBIN 36 pg (27-31); MEAN CORPUSCULAR HGB CONC 36 % (32-36); MEAN CORPUSCULAR VOLUME 100 fL (79.0-98.0); MONOCYTES # (AUTO) 1.7 K/uL (0.0-1.0); MONOCYTES % (AUTO) 17.4 % (1.7-9.3); NEUTROPHILS # (AUTO) 6.5 K/uL (1.8-7.7); NEUTROPHILS % (AUTO) 66.5 % (40.0-70.0); PLATELET COUNT (AUTO) 548 K/uL (130-430); RED BLOOD CELL COUNT(AUTO) 3.43 MIL/uL (4.2-6.2); WHITE BLOOD COUNT (AUTO) 9.8 K/uL (4.8-10.8)
[2021-12-03 07:44] LABS: CALCIUM 8.5 mg/dL (8.4-11.0); CREATININE 0.57 mg/dL (0.55-1.30); POTASSIUM 3.9 mmol/L (3.5-5.1)
[2021-12-03] MEDS: NICOTINE 21 MG/24 HR PATCH.TD24 TD SCH (08:13)
[2021-12-03] MEDS: POTASSIUM CHLORIDE 20 MEQ TAB.PRT.SR PO SCH ×2 (08:14→20:23)
[2021-12-03] MEDS: chlordiazePOXIDE HCL 25 MG CAPSULE PO SCH ×4 (08:14→20:24)
[2021-12-03 09:08] VITALS: BP_SYST 128
[2021-12-03] MEDS: QUEtiapine FUMARATE 100 MG TABLET PO SCH (20:24)
[2021-12-03 21:00] VITALS: BP_SYST 116
[2021-12-04 00:56] VITALS: BP_SYST 115
[2021-12-04] MEDS ORDERED: CALCIUM CARBONATE 500 MG/ TAB.CHEW PO PRN ×2 (06:00→06:30)
[2021-12-04 06:36] LABS: BASOPHILS # (AUTO) 0.1 K/uL (0.0-0.2); BASOPHILS % (AUTO) 0.7 % (0.0-2.0); EOSINOPHILS # (AUTO) 0.1 K/uL (0.0-0.4); HEMATOCRIT 30.1 % (36-54); HEMOGLOBIN 11.1 g/dL (14.0-18.0); LYMPHOCYTES # (AUTO) 1.5 K/uL (1.0-5.5); LYMPHOCYTES % (AUTO) 17.2 % (20.5-51.5); MEAN CORPUSCULAR HEMOGLOBIN 37 pg (27-31); MEAN CORPUSCULAR HGB CONC 37 % (32-36); MEAN CORPUSCULAR VOLUME 100 fL (79.0-98.0); MONOCYTES # (AUTO) 1.4 K/uL (0.0-1.0); MONOCYTES % (AUTO) 15.6 % (1.7-9.3); NEUTROPHILS # (AUTO) 5.9 K/uL (1.8-7.7); NEUTROPHILS % (AUTO) 65.5 % (40.0-70.0); PLATELET COUNT (AUTO) 550 K/uL (130-430); RED BLOOD CELL COUNT(AUTO) 3.03 MIL/uL (4.2-6.2); RED CELL DISTRIBUTION WIDTH 12.8 % (9.0-15.0)
[2021-12-04 07:58] LABS: ALBUMIN 2.2 g/dL (3.4-4.8); CALCIUM 8.6 mg/dL (8.4-11.0); CREATININE 0.55 mg/dL (0.55-1.30); PHOSPHORUS 2.8 mg/dL (2.7-4.5); POTASSIUM 3.8 mmol/L (3.5-5.1); TOTAL BILIRUBIN 0.5 mg/dL (0.0-1.0)
[2021-12-04 08:00] VITALS: BP_SYST 114
[2021-12-04] MEDS: chlordiazePOXIDE HCL 25 MG CAPSULE PO SCH ×4 (09:24→21:13)
[2021-12-04] MEDS: POTASSIUM CHLORIDE 20 MEQ TAB.PRT.SR PO SCH ×2 (09:24→21:13)
[2021-12-04] MEDS: LORazepam 1 MG TABLET PO PRN ×2 (09:25→14:43)
[2021-12-04] MEDS: NICOTINE 21 MG/24 HR PATCH.TD24 TD SCH (09:25)
[2021-12-04] MEDS ORDERED: MAGNESIUM SULFATE 50 ML IV ONE (11:00)
[2021-12-04 12:00] VITALS: BP_SYST 123
[2021-12-04] MEDS ORDERED: MAGNESIUM OXIDE 400 MG TABLET PO ONE (12:00)
[2021-12-04 16:00] VITALS: BP_SYST 124
[2021-12-04 20:00] VITALS: BP_SYST 140
[2021-12-04] MEDS: MAGNESIUM OXIDE 400 MG TABLET PO SCH (21:12)
[2021-12-04] MEDS: QUEtiapine FUMARATE 100 MG TABLET PO SCH (21:13)
[2021-12-05 00:20] VITALS: BP_SYST 120
[2021-12-05] MEDS: LORazepam 1 MG TABLET PO PRN ×2 (00:21→08:16)
[2021-12-05 06:37] LABS: BASOPHILS # (AUTO) 0.1 K/uL (0.0-0.2); EOSINOPHILS # (AUTO) 0.1 K/uL (0.0-0.4); HEMATOCRIT 33.9 % (36-54); HEMOGLOBIN 12.4 g/dL (14.0-18.0); MEAN CORPUSCULAR HEMOGLOBIN 37 pg (27-31); MEAN CORPUSCULAR HGB CONC 37 % (32-36); MEAN CORPUSCULAR VOLUME 100 fL (79.0-98.0); MONOCYTES # (AUTO) 1.3 K/uL (0.0-1.0); MONOCYTES % (AUTO) 15.4 % (1.7-9.3); NEUTROPHILS # (AUTO) 4.8 K/uL (1.8-7.7); NEUTROPHILS % (AUTO) 58.6 % (40.0-70.0); PLATELET COUNT (AUTO) 687 K/uL (130-430); RED BLOOD CELL COUNT(AUTO) 3.39 MIL/uL (4.2-6.2); RED CELL DISTRIBUTION WIDTH 12.9 % (9.0-15.0); WHITE BLOOD COUNT (AUTO) 8.2 K/uL (4.8-10.8)
[2021-12-05 07:04] LABS: CALCIUM 8.9 mg/dL (8.4-11.0); CREATININE 0.6 mg/dL (0.55-1.30); POTASSIUM 4.7 mmol/L (3.5-5.1)
[2021-12-05 07:36] VITALS: BP_SYST 119
[2021-12-05] MEDS: chlordiazePOXIDE HCL 25 MG CAPSULE PO SCH (08:15)
[2021-12-05] MEDS: POTASSIUM CHLORIDE 20 MEQ TAB.PRT.SR PO SCH (08:15)
[2021-12-05] MEDS: NICOTINE 21 MG/24 HR PATCH.TD24 TD SCH (08:15)
[2021-12-05] MEDS: MAGNESIUM OXIDE 400 MG TABLET PO SCH (08:16)
[2021-12-05 09:10] VITALS: BP_SYST 119
[2021-12-05] MEDS ORDERED: LORazepam 1 MG TABLET PO PRN (09:30)
[2021-12-05] MEDS ORDERED: NICO-737 TD (09:49)
[2021-12-05] MEDS ORDERED: SER100 PO (09:49)
[2021-12-05] MEDS ORDERED: Thiamine Hcl PO ×2 (09:49→09:52)
[2021-12-05] MEDS ORDERED: LIB25 PO (09:49)
[2021-12-05] MEDS ORDERED: FOLI-43 PO (09:49)
[2021-12-05] MEDS ORDERED: MULT400T13 PO (09:49)
== END 2021-12-05 10:10 | disposition home or self-care (01) | DRG 871 ==
LOC: SED 11:24 → SMU 14:09
PROVIDERS: ADMIT Preventive Medicine Preventive Medicine/Occupational Environmental Medicine; ATTEND Preventive Medicine Preventive Medicine/Occupational Environmental Medicine
PROC: 05HY33Z Insertion of Infusion Device into Upper Vein, Percutaneous Approach (ICD-10-PCS; principal; 2021-11-27)
PROC: B54NZZA Ultrasonography of Left Upper Extremity Veins, Guidance (ICD-10-PCS; 2021-11-27)
DX: A41.9 Sepsis, unspecified organism (principal); E43 Unspecified severe protein-calorie malnutrition; G93.41 Metabolic encephalopathy; E87.1 Hypo-osmolality and hyponatremia; N17.9 Acute kidney failure, unspecified; F10.239 Alcohol dependence with withdrawal, unspecified; Z20.822 Contact with and (suspected) exposure to COVID-19; E86.0 Dehydration; Y90.9 Presence of alcohol in blood, level not specified; E87.6 Hypokalemia; D72.829 Elevated white blood cell count, unspecified; R73.9 Hyperglycemia, unspecified; E78.5 Hyperlipidemia, unspecified; E83.51 Hypocalcemia; E88.09 Other disorders of plasma-protein metabolism, not elsewhere classified; R74.01 Elevation of levels of liver transaminase levels; E87.8 Other disorders of electrolyte and fluid balance, not elsewhere classified; K70.10 Alcoholic hepatitis without ascites; F12.10 Cannabis abuse, uncomplicated; D64.9 Anemia, unspecified; D69.6 Thrombocytopenia, unspecified; E83.39 Other disorders of phosphorus metabolism; E83.41 Hypermagnesemia; E83.52 Hypercalcemia; D75.839 Thrombocytosis, unspecified; F17.200 Nicotine dependence, unspecified, uncomplicated; R53.81 Other malaise; Z68.23 Body mass index [BMI] 23.0-23.9, adult
CPT/HCPCS: 36415; 71045; 76376; 76700-TC; 80048; 80053; 80074; 80307; 82105; 83605; 83735; 84100; 85025; 85610-TC; 85651-TC; 86140; 87040; 87086; 96361; 96374; 96375; 97116-GP; 97530-GP; 99285; G0482; J0696; J1200; J1630; J2060; J3411; J3475; J3480; J3490; J7030; J7040; J7050; Q0169; Q9964